=== PATIENT | female | born 1980 | race Caucasian/White ===

== ENCOUNTER 2018-11-21 21:35 | Emergency (ER) | payer MEDICAID ==
[~2018-11-21] VITALS: Ht 157.5 cm; Wt 54.4 kg
[2018-11-21 21:49] VITALS: BP 114/73
--- NOTE | 2018-11-21 21:52 | NUR ---
PT AMBULATED TO BED 7. PROVIDING URINE.
[2018-11-21] MEDS ORDERED: KETOROLAC 60 MG/2 ML VIAL IM ONE (21:55)
--- NOTE | 2018-11-21 21:55 | NUR ---
38/F PRESENTED TO ED. C/O RUQ PAIN 10/ SHARP PAIN SINCE MONDAY. STATES FEVER CHILLS AT NIGHT. TOOK IBUPROPHEN BUT ONLY RELIEVED LITTLE PAIN. STATES IT IS STILL INFLAMED. DX WITH GALSTONES AT [facility] ON 11/18/18. NO N/V/D. HX: GALSTONES
[2018-11-21 23:16] VITALS: BP 99/59
--- NOTE | 2018-11-21 23:17 | NUR ---
Patient discharged with v/s stable. Written and verbal after care instructions given and explained. Patient alert, oriented and verbalized understanding of instructions. Ambulatory with steady gait. All questions addressed prior to discharge. ID band removed. Patient advised to follow up with PMD. Rx of NORCO, ZOFRAN, MOTRIN given. Patient educated on indication of medication including possible reaction and side effects. Opportunity to ask questions provided and answered.
== END 2018-11-21 23:17 | disposition home or self-care (01) ==
LOC: MED 21:35
DX: R10.13 Epigastric pain (principal); R10.11 Right upper quadrant pain
CPT/HCPCS: 81002; 81025; 96372; 99283; J1885